=== PATIENT | male | born 1980 | race Two or more races ===

== ENCOUNTER 2021-03-23 04:44 | Emergency (ER) | payer BC ==
[~2021-03-23] VITALS: Ht 152.4 cm; Wt 82.6 kg
[2021-03-23] MEDS ORDERED: KETO10TA2 PO (06:33)
== END 2021-03-23 07:58 | disposition home or self-care (01) ==
LOC: ER 04:44
DX: M24.412 Recurrent dislocation, left shoulder (principal)